=== PATIENT | female | born 2000 | race Caucasian/White ===

== ENCOUNTER 2023-02-10 10:54 | Inpatient (IN) | payer MEDICAID, SELFPAY ==
[2023-02-10] VITALS (58 sets, daily range): BP systolic 110–232; BP diastolic 56–119; PULSE 68–151; TEMP 36.4–37.8; O2SAT 86–100; BMI 34.6
[2023-02-10] MEDS: Lactated Ringers 1,000 ML 50 ML IV (11:50)
[2023-02-10] MEDS: Oxytocin 15 Units/NS 250ml 15 UNITS/250 ML IV.SOLN 2 UNITS IV (11:55)
[2023-02-10 12:19] LABS: Absolute Neutrophil Count 12.1 X10^3/uL (2.0-7.7); Basophil# 0.06 X10^3/uL; Basophil% 0.4 % (0-1); Eosinophil# 0.32 X10^3/uL; Eosinophils% 2.1 % (0-5); Hematocrit 36.4 % (37-47); Hemoglobin 12.2 g/dL (12.0-15.0); Mean Corp Hgb Conc 33.5 g/dL (32-36); Mean Corpuscular Hgb 28.4 pg (27.0-32.0); Mean Corpuscular Volume 84.7 fL (81-99); Monocyte# 0.78 X10^3/uL; Monocyte% 5.1 % (0-10); NRBC Flagged by Analyzer 0 % (0-5); Neutrophil # 12.12 X10^3/uL (2.7-7.7); Neutrophil % 78.9 % (47-70); Platelet Count 320 K/mm3 (150-450); RBC Distribution Width CV 13.2 % (11.6-14.6); RBC Distribution Width SD 40.6 fl (35.1-43.9); White Blood Count 15.4 K/mm3 (4.4-11.0)
[2023-02-10] MEDS: LACTATED RINGERS 500 ML 999 ML IV (12:19)
[2023-02-10 12:50] LABS: Syphilis Antibodies Non-reactive
[2023-02-10] MEDS: Penicillin G Pot 5,000,000 UNITS in 0.9% Normal Saline (100mL MB+) 100 ML 150 UNITS IV (12:53)
[2023-02-10] MEDS: fentaNYL-bupivacaine (epidural) 100 ML BAG EPIDURAL ×2 (13:26→18:05)
--- NOTE | 2023-02-10 13:38 | PCM.HP.OB ---
HPI - General General Date of Admission: 02/10/23 Date of Service: 02/10/23 HPI Narrative VIC HOLLAND, is a 22 F who presents with ctxs. Maternal Data Information Final JIMY: 02/09/23 Gestational age: 40&1 PFSH PFSH Medical History Anemia Anxiety Family history of congenital heart defect Home Medications vit no.95-ferrous fumarate 28 mg-folic acid 800 mcg tablet () 1 tab PO DAILY 02/10/23 [History Last Taken 02/09/23 13:30 1 TAB] Allergy/AdvReac Type Severity Reaction Status Date / Time No Known Allergies Allergy Verified 02/10/23 11:48 Social History Smoking Status: Former smoker History Elective abortions Hx Para 0 Spontaneous abortions Hx # Term Pregnancies Ectopic pregnancies Hx # Pregnancies Multiple births # of living children NST FHR Rate Baby A Baseline: 135 Variability:: Moderate Accelerations:: 15 x 15 Decelerations:: Variable Uterine Activity:: Irregular Vital Signs Vital Signs Vital Signs: 02/10/23 09:43 02/10/23 09:43 02/10/23 09:43 Temperature Temperature Source Temporal Pulse Rate 89 Blood Pressure 135/89 H BP Systolic 135 BP Diastolic 89 Pulse Ox 02/10/23 09:43 02/10/23 10:51 02/10/23 10:51 Temperature 98.5 F Temperature Source Pulse Rate 83 Blood Pressure 141/96 H BP Systolic 141 BP Diastolic 96 Pulse Ox 02/10/23 10:53 02/10/23 10:53 02/10/23 10:52 Temperature Temperature Source Pulse Rate 85 Blood Pressure 139/86 H BP Systolic 139 BP Diastolic 86 Pulse Ox 100 02/10/23 10:51 02/10/23 10:51 02/10/23 10:51 Temperature Temperature Source Temporal Pulse Rate 83 Blood Pressure BP Systolic BP Diastolic Pulse Ox 99 02/10/23 10:51 02/10/23 11:40 02/10/23 11:40 Temperature 98.2 F 98.4 F Temperature Source Tympanic Pulse Rate Blood Pressure BP Systolic BP Diastolic Pulse Ox 02/10/23 11:56 02/10/23 11:56 02/10/23 13:11 Temperature Temperature Source Pulse Rate 91 Blood Pressure 125/84 H 145/91 H BP Systolic 125 145 BP Diastolic 84 91 Pulse Ox 02/10/23 13:11 02/10/23 13:11 02/10/23 13:16 Temperature Temperature Source Pulse Rate 106 H Blood Pressure 143/88 H BP Systolic 143 BP Diastolic 88 Pulse Ox 100 02/10/23 13:16 02/10/23 13:16 02/10/23 13:16 Temperature Temperature Source Pulse Rate 102 H 102 H Blood Pressure BP Systolic BP Diastolic Pulse Ox 99 02/10/23 13:21 02/10/23 13:21 02/10/23 13:21 Temperature Temperature Source Pulse Rate 117 H Blood Pressure 138/81 H BP Systolic 138 BP Diastolic 81 Pulse Ox 99 02/10/23 13:27 02/10/23 13:27 02/10/23 13:26 Temperature Temperature Source Pulse Rate 151 H Blood Pressure 130/56 H BP Systolic 130 BP Diastolic 56 Pulse Ox 96 02/10/23 13:30 02/10/23 13:30 02/10/23 13:31 Temperature Temperature Source Pulse Rate 107 H 120 H Blood Pressure 134/64 H BP Systolic 134 BP Diastolic 64 Pulse Ox 02/10/23 13:31 02/10/23 13:33 02/10/23 13:33 Temperature Temperature Source Pulse Rate 118 H Blood Pressure 142/73 H BP Systolic 142 BP Diastolic 73 Pulse Ox 99 02/10/23 13:36 02/10/23 13:36 Temperature Temperature Source Pulse Rate 110 H Blood Pressure 136/72 H BP Systolic 136 BP Diastolic 72 Pulse Ox Weight Weight: 189 lb 2.506 oz Body Mass Index (BMI) 34.6 Physical Exam Const alert, oriented x3 and no apparent distress external exam normal Narrative: cvx - 3/90/-1, AROM mec fluid Labs Labs Labs: Blood Type A POSITIVE Antibody Screen NEGATIVE Hct 36.4 % (37-47) L Hgb 12.2 g/dL (12.0-15.0) Syphilis Total Ab Non-reactive Assessment & Plan (1) Post-dates : QUALIFIERS: Post-term type: 40-42 weeks gestation Qualified Code(s): O48.0 - Post-term COMMENT: @ 40&1 PLAN: Plan Admit to L&D AUgment with pitcon AROM mod meconium fluid Pain - epidural GBS positive - pcn per protocol EFW - less than 4500g, patient with adequate pelvis Routine care
[2023-02-10] MEDS: Lactated Ringers 1,000 ML 200 ML IV (16:58)
[2023-02-10] MEDS: Penicillin G 3,000,000 Units 50 ML 100 UNITS IV ×2 (16:58→20:55)
[2023-02-10] MEDS: Oxytocin 15 Units/NS 250ml 15 UNITS/250 ML IV.SOLN 83 UNITS IV (22:23)
--- NOTE | 2023-02-10 23:23 | EX.PCM.OBRPT ---
Maternal Data Information Final JIMY: 02/09/23 Gestational age: 40&1 Vaginal Delivery Maternal Presentation Maternal Presentation: Active Labor Operative Information Date of Procedure: 02/10/23 Pre-Operative Diagnosis: Labor Post-Operative Diagnosis: Same Surgery / Procedure Performed: Spontaneous Vaginal Delivery Type of Anesthesia: Epidural Estimated Blood Loss: 300ml Findings Description of Procedure: Patient prepped & draped when C/C/+2. She pushed well to deliver the head. head gently guided to allow delivery of anterior and posterior shoulders. No excess traction placed on head. Body delivered and 3VC clamped & cut in delayed fashion. Placenta delivered with gentle traction and good uterine tone obtained. Presentation: IRENA Amniotic Membrane Rupture Type: Artificial Amniotic Fluid Description: Moderate meconium Placental Delivery Description: Expressed Placenta Disposition: [facility] Specimen(s) Removed: Placenta Cord Vessel Description: 3 Vessels Cord Entanglement: None A Gender: Male (1 minute): 8 (5 minute): 9 Delayed Cord Clamping: Yes Post Vaginal Delivery Medications Given After Delivery: IV Pitocin Episiotomy Description: None Laceration: 1st degree (right vaginal - repaired with 3-0 vicryl) Complication Complications: None
[2023-02-11] VITALS (8 sets, daily range): BP systolic 99–137; BP diastolic 51–71; PULSE 87–105; RESP 16–18; TEMP 36.8–37; O2SAT 98–99
--- NOTE | 2023-02-11 08:32 | PCM.PROGNOTE ---
Subjective Subjective patient seen at bedside, doing well. Patient reports good pain control. lochia mild. Objective Data Objective Data Vital Signs: Vital Signs Temp Pulse Resp BP Pulse Ox O2 Del Method 98.6 F 102 H 18 99/61 99 Room Air 02/11/23 08:02 02/11/23 08:02 02/11/23 08:02 02/11/23 08:02 02/11/23 00:05 02/11/23 03:05 Oxygen Delivery Method Room Air Weight: 85.8 kg Body Mass Index (BMI) 34.6 Intake & Output: Intake and Output for Last 24 Hours 02/09/23 02/10/23 02/11/23 23:59 23:59 23:59 Intake Total 3252.50 / 3252.50 250 / 250 Output Total 900 / 900 1600 / 1600 Balance 2352.50 / 2352.50 -1350 / -1350 Lab / Micro Data 02/10/23 11:50 Labs: Laboratory Results - last 24 hr 02/10/23 11:50: WBC 15.4 H, RBC 4.30, Hgb 12.2, Hct 36.4 L, MCV 84.7, MCH 28.4, MCHC 33.5, RDW Std Deviation 40.6, RDW Coeff of Cheryl 13.2, Plt Count 320, MPV 10.0, Immature Gran % (Auto) 0.500, Neut % (Auto) 78.9 H, Lymph % (Auto) 13.0 L, Pocahontas % (Auto) 5.1, Eos % (Auto) 2.1, Baso % (Auto) 0.4, Absolute Neuts (auto) 12.1 H, Absolute Lymphs (auto) 2.00, Nucleated RBC % 0, Syphilis Total Ab Non-reactive, Blood Type A POSITIVE, Antibody Screen NEGATIVE Physical Exam Const alert and oriented x3 General Appearance: cooperative HEENT normocephalic Neck General: normal visual inspection GI soft to palpation and non-distended GI Narrative: Fundus firm Extremity normal to inspection and no calf tenderness Skin no rashes or lesions noted Neuro oriented x3 and CN's II-XII intact bilaterally Psych mental status grossly normal Assessment & Plan Assessment/Plan (1) Vaginal delivery: PLAN: Plan PPD#1 , Doing well Routine care pain mgmt ambulation
--- NOTE | 2023-02-11 11:54 | DCINST_ITS ---
Discharge Instructions Diet Discharge Diet: No restrictions Activity May resume sexual activity in: 6-8 weeks Dressing / Incision Call your doctor if you observe: Fever of 101 or Higher, Inability to urinate, Using more than 1 pad per hour and Uncontrolled pain Follow Up Care Please Follow Up With: Kimberly Weller MD When: 1-2 weeks post and again at 6 weeks post . [phone] Test Results: Test results from this visit will be discussed in further detail at your follow- up appointment, if applicable. Discharge Plan Admission Admit Date/Time: 02/10/23 10:54 Attending Provider: Carin Rivers Primary Care Provider: Douglas Moya Discharge Orders/Prescriptions Prescriptions: No Action PNV cmb#95-ferrous fumarate-FA [] 28 mg iron- 800 mcg tablet 1 tab PO DAILY Referrals / Follow Up: Douglas Moya DO [Primary Care Provider] -
--- NOTE | 2023-02-11 15:06 | CASEMGMT ---
Labor and Delivery Social Work Social work consult received due to maternal mental health history positive for anxiety and need for resources. Joelle presented to bedside and met with mother of baby (MOB- Viji) and father of baby (FOB- Jose). Sw explained reason for social work involvement, completed psychosocial assessment, assessed for needs/ concerns and discussed beneficial resources for MOB and baby. - MOB expressed desire to breast feed and pump breast milk for baby, however struggled to get baby latched, sw reached out to for support. - Sw informed MOB that it is ok if she is only able to breast feed/ provide breast milk for baby temporarially as it can be painful, challenging and extremely time consuming. Sw commended MOB for her desire to do so for baby. Sw encouraged MOB to get connected to [place] which would provide assistance for obtaining formula should MOB need to supplement. MOB stated that she is already connected to WIC. - Sw informed MOB that she needs to get baby added to insurance within 30 days. Sw provided MOB with list of community resources, and highlighted JFS phone number and wrote down that MOB needs to call as soon as she has baby's social security card. Sw also encouraged MOB to apply for food benefits when she gets baby added to insurance. MOB expressed understanding. - There is a definite language barrier between product manager medical device and FOB. MOB did translating for sw and FOB, however she did not speak Omani, she just reworded the question to simpler terms. - Sw asked MOB who her supports are. MOB stated that paternal aunt helps her and FOB a lot with transportation and with things at home. MOB stated it is FOB's aunt that will help her with getting connected to community resources. MOB also stated that her mom is a support person for her as well. - Joelle educated MOB on [facility] and the benefits of getting connected to them. MOB was receptive to referral. Sw informed MOB that [facility] will call or text her to get an appointment scheduled and sw told MOB that she needs to answer her phone when they call. MOB expressed understanding. - Sw also encouraged MOB to make appointment with outpatient services. MOB receptive to this recommendation as well. Sw will make referral to [facility]. More detailed psychosocial assessment note to follow. Per social work- it is ok for MOB and baby to be discharged (as long as willing to engage with community resources) when medically ready. At this time, MOB states that she is receptive to recommendations made by social work and medical team. Deyanira Cordoba, PROSTHETIC ASSISTANT, SERVICE LOSS CONTROL CONSULTANT
--- NOTE | 2023-02-11 16:30 | CASEMGMT ---
Social Work Assessment Labor and Delivery Unit Patient Address: [address] [address] Phone number: [phone] Date of Referral: 02/11/23 Time of Referral:? 5 Referred By: Carin Rivers Date of Intervention: ??02/11/23 Time of Intervention:? 1320, onoging Reason for Referral:? hx of anxiety, resources Sw completed chart review and acknowledges social work consult due to maternal mental health history positive for anxiety. This is also first baby for mother and father of baby who would benefit from information regarding resources that they are eligible for at this time. Sw presented to bedside and introduced self to mother of baby (MOB- Viji) and father of baby (FOB- Jose). Sw completed psychosocial assessment and discussed applicable resources that parents and baby are eligible for at this time. History obtained from: medical records, MOB and FOB- however FOB's Niuean is very limited, sw repeated self several times in order to obtain necessary information. MOB would ask FOB same question as SW did but would rephrase it for FOB to understand. Household composition: DEVEN reports that currently it is only herself, FOB and now baby that live together. DEVEN denies any concerns with housing, reports is safe and secure at this time. Patient's parent/guardian status:? DEVEN states that she and FOCandelario have been together for 2 years, they were introduced to each other by FOB's aunt. DEVEN denies any concerns of domestic violence or intimate partner violence. ? Medical History: ?DEVEN is 22 year old, female who is 1, para 0- now 1 following labor and delivery of baby. DEVEN received routine care with [facility] during . DEVEN delivered baby boy on 02/10/23 via vaginal delivery at 40 weeks gestation. Baby boy, named Ted was born weighing 6lb 11oz and his apgars were 9 and 9 at one and five minutes of life respectfully. DEVEN states that baby will be followed by Dr. Sanders for pediatrics. - While completing assessment with parents, FOB was observed to be holding baby while he was sitting in the reclining chair. After a while baby started to cry and FOB bounced baby gently in attempt to calm him. Sw asked MOB and FOB when baby ate last, and MOB stated that baby ate last at 1030. The time now was 1320. Joelle informed MOB that if she is working on breast feeding it would be time for baby to eat, explaining that a breastfed baby can eat anytime they show hunger cues. Which at that time baby had been putting his hand to his mouth- and sw explained that this is a hunger cue. Joelle asked MOB if she would like to come and meet with her for some education/ assistance and MOB said yes. Joelle called and asked for them to come and meet with mom. - Later on in day, sw was informed by bedside RN that she and had been providing lots of education with MOB today, and they have concerns that she was not comprehending how to feed baby. Nurse stated that MOB is expressing a desire to breast feed, and initially baby latches really well, and then unlatches and mom struggles to get him latched again. Sw stated that while meeting with MOB she was receptive to following up with outpatient support services, WIC and [facility]. Sw stated that all these supports will provide breast feeding and bottle feeding assistance to MOB. Joelle stated that MOB also informed sw that her mom and FOB aunt are their identified support people who will also be available to help parents once discharged from hospital. Educational Status:? MOB states that she graduated from high school and did require an IEP for reading. Joelle asked MOB if she is able to read, and MOB said that she is, but her IEP would offer her more time to complete tests, and she was assigned seats in the front of the class. Joelle asked about DONNIE, and DEVEN stated that he completed his schooling in [place]. 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 MOB states that she was working for an independent [employer] company and she is on maternity leave at this time. Infant Supplies:?? MOB states that she and DONNIE have obtained all necessary baby items for baby, including: car seat, safe sleep space, clothes, diapers, wipes, feeding supplies, etc. Childcare/Caregiver(s):?When both parents are working and they need assistance with childcare either maternal grandma will babysit the baby, or paternal aunt. Transportation:?? MOB reports that she does not drive, but DONNIE does and has reliable transportation. Sw asked MOB how she gets to scheduled doctors appointments, and she reported that either her mom or paternal aunt will help with transportation, MOB stated that she does not miss scheduled appointments. - Sw educated MOB on the importance of ensuring that baby gets to all of his scheduled [employer] Up [employer]er appointments when they are scheduled. MOB expressed understanding. Programs/Agencies Involved: ?MOB stated that at this time she is connected to insurance through [employer] (medicaid), WIC and is receptive to getting connected to [facility]. Sw explained benefits of program and encouraged MOB to utilize them. MOB expressed understanding. Sw also educated MOB on outpatient services that are available to her, MOB stated that she is receptive to following up with them as well. ?? Children Services/Legal Issues:??No history of children services involvement. At this time MOB is receptive to following up with all recommended resources and services that are available to her. While completing psychosocial assessment parents were appropriately engaged in care of . If any additional concerns should arise a referral to Children Services may be warranted. ? Behavioral Health Issues: ??Mental Health History:?DEVEN states that DONNIE does not have any mental health diagnoses. MOB stated that she has been diagnosed with anxiety, is not prescribed medications and is not connected to any mental health resources. ?? Substance Use History: MOB denies ever using illicit substances prior to and during . ?? Family History:?MOB denies substance use history in her family and FOB family. MOB also denies significant mental health diagnoses. ???Drug Screens: ?No urine screens observed in chart review. ? Family/Social Stressors:?MOB denies any stressors or concerns at this time. Support Systems: MOB states that her mom and paternal aunt are her and FOB's biggest supports. Depression/Shaken Baby/Safe Sleeping:? Sw educated MOB and FOB on signs and symptoms of baby blues and depression. Sw explained to MOB that she is more at risk of experiencing baby blues or depression/ anxiety due to her history of anxiety. MOB expressed understanding. Sw educated parents on shaken baby prevention and importance of ABCs of safe sleep. MOB and FOB expressed understanding. ASSESSMENT: MOB is 22 year old first time mom to . MOB and baby admitted following labor and delivery. MOB struggling with breast feeding and was utilizing support and education provided by . MOB made good eye contact with sw. FOB struggled to understand questions asked by social work, but would comprehend better when talking with MOB. MOB was receptive to getting connected to [facility], WIC, JFS (insurance and food stamps) and outpatient supports. MOB was informed of additional community resources that are available to her should she have any needs once discharged from labor and delivery. MOB answered questions asked by sw, but did not always elaborate on answers. Sw could tell that MOB was struggling with breast feeding, often seeming confused on how to get baby to latch again after he had unlatched. Sw provided support and reiterated questions and concerns to be forwarded to . ? PLAN:? Sw will make referral to [facility] as MOB is receptive to this linkage. Sw touched base with bedside RN and discussed nursing concerns at this time. Sw stated that while sw was meeting with them parents were engaged appropriately in care, however it was evident that MOB was struggling with feeding baby. Sw stated that at this time sw is ok with MOB and baby being discharged as long as MOB continues to be receptive to follow up with appropriate and beneficial community resources. Deyanira Cordoba, SONAR TECHNICIAN, CARDIOLOGY CLINICAL NURSE SPECIALIST
[2023-02-11] MEDS: Ibuprofen 100 MG/5 ML UDC 600 MG PO (21:13)
[2023-02-12 02:01] VITALS: BP 130/64; PULSE 89; RESP 16; TEMP 36.6
[2023-02-12 08:18] VITALS: BP 112/66; PULSE 83; RESP 16; TEMP 36.7; O2SAT 98
--- NOTE | 2023-02-12 08:21 | PCM.PROGNOTE ---
Subjective Subjective patient seen at bedside, doing well. Patient reports good pain control. lochia mild. Objective Data Objective Data Vital Signs: Vital Signs Temp Pulse Resp BP Pulse Ox O2 Del Method 97.9 F 89 16 130/64 H 99 Room Air 02/12/23 02:01 02/12/23 02:01 02/12/23 02:01 02/12/23 02:01 02/11/23 00:05 02/12/23 02:01 Oxygen Delivery Method Room Air Weight: 85.8 kg Body Mass Index (BMI) 34.6 Intake & Output: Intake and Output for Last 24 Hours 02/10/23 02/11/23 02/12/23 23:59 23:59 23:59 Intake Total 3252.50 / 3252.50 250 / 250 Output Total 900 / 900 1600 / 1600 Balance 2352.50 / 2352.50 -1350 / -1350 Lab / Micro Data 02/10/23 11:50 Physical Exam Narrative fundus firm. Const alert and oriented x3 General Appearance: cooperative HEENT normocephalic Neck General: normal visual inspection GI soft to palpation and non-distended GI Narrative: Fundus firm Extremity normal to inspection and no calf tenderness Skin no rashes or lesions noted Neuro oriented x3 and CN's II-XII intact bilaterally Psych mental status grossly normal Assessment & Plan Assessment/Plan (1) Vaginal delivery: PLAN: Plan PPD# 2 , Doing well Routine care pain mgmt ambulation dc home planned today- however there are concerns about feeding - will see how patient does today time spent on day of discharge face to face with patient was <30min
[2023-02-12 12:15] VITALS: BP 123/57; PULSE 90; RESP 16; TEMP 36.6; O2SAT 98
[2023-02-12] MEDS: Ibuprofen 100 MG/5 ML UDC 600 MG PO (12:30)
[2023-02-12 16:16] VITALS: BP 127/69; PULSE 78; RESP 16; TEMP 36.6; O2SAT 98
[2023-02-12 19:45] VITALS: BP 136/69; PULSE 94; RESP 18; TEMP 36.4; O2SAT 98
--- NOTE | 2023-02-12 20:44 | CASEMGMT ---
Social Work SW consulted by nursing due to concerns. Pt was to discharge today but d/c cancelled due to concerns. Pt had assessment yesterday and planned to d/c home with baby today but patient has been struggling to care for baby. SW introduced self and role to patient. SW gathered some basic information. Pt presents as having possible cognitive delays or mild intellectual disability but there is no related diagnosis in medical record. Pt attempting to nurse baby. Pt became frustrated when baby cried and requested nursing assistance. FOB present and does not speak Swedish. FOB does seem engaged in baby's needs. SW provided support. Major concerns include patient being told the same instructions repeatedly, lack of understanding/retention, difficulty feeding baby by breast or bottle, unsure how to make a bottle even with instruction, frequently calls nursing if baby cries, unsure of baby's needs, and unsure how to change a diaper. Pt does report to SW that she is unsure of caring for baby's needs and is staying another day for education. Pt does report planning to stay at her mother's home for 2 weeks, [facility]. Pt does reside with FOB who presents as able to provide care. Due to concerns, SW contacted CSB to review. CSB rack production workerwallboard worker reviewed with underwriting clerks supervisor and case will be opened on the basis of providing resources and assistance to patient/baby. SW obtained additional info for CSB worker from patient. Pt had family in the room at the time of gathering information and CSB referral was not discussed with her. SW notified CSB of plan to discharge tomorrow. CSB reports either tomorrow or Tuesday someone should be reaching out to provide support. Due to FOB and grandparent assistance, CSB reports baby to d/c home with patient. SW advised CSB to call [facility] if any other concerns arise. Additionally, patient's nurse has been providing additional assistance and education. Pt shown by nurse how to scan education materials for documents to be played on her phone for frequent review. Plan: Patient to d/c home with baby. CSB to provide additional assistance/resources post-discharge. Isabella Frank CENTER MEDICAL SPECIALIST, TELEHEALTH DIRECTOR
[2023-02-13 01:35] VITALS: BP 105/64; PULSE 73; RESP 16; TEMP 36.8; O2SAT 98
[2023-02-13] MEDS: Ibuprofen 100 MG/5 ML UDC 600 MG PO (01:51)
--- NOTE | 2023-02-13 04:13 | PCM.PROGNOTE ---
Subjective Subjective patient seen at bedside, doing well. Patient reports good pain control. lochia mild. pt reports just fed baby a bottle- is writing it down so she remembers. happy with help she got yesterday with bottle cleaning. Objective Data Objective Data Vital Signs: Vital Signs Temp Pulse Resp BP Pulse Ox O2 Del Method 98.2 F 73 16 105/64 98 Room Air 02/13/23 01:35 02/13/23 01:35 02/13/23 01:35 02/13/23 01:35 02/13/23 01:35 02/13/23 01:35 Oxygen Delivery Method Room Air Weight: 85.8 kg Body Mass Index (BMI) 34.6 Intake & Output: Intake and Output for Last 24 Hours 02/11/23 02/12/23 02/13/23 23:59 23:59 23:59 Intake Total 250 / 250 Output Total 1600 / 1600 Balance -1350 / -1350 Lab / Micro Data 02/10/23 11:50 Physical Exam Const alert and oriented x3 General Appearance: cooperative HEENT normocephalic Neck General: normal visual inspection GI soft to palpation and non-distended GI Narrative: Fundus firm Extremity normal to inspection and no calf tenderness Skin no rashes or lesions noted Neuro oriented x3 and CN's II-XII intact bilaterally Psych mental status grossly normal Assessment & Plan Assessment/Plan (1) Vaginal delivery: PLAN: Plan PPD# 2 , Doing well Routine care pain mgmt ambulation continue education on feeding and basic care of - dc home
[2023-02-13 08:00] VITALS: BP 112/64; PULSE 73; RESP 16; TEMP 36.2; O2SAT 98
[2023-02-13 13:06] VITALS: BP 132/79; PULSE 96; RESP 16; TEMP 36.8; O2SAT 99
--- NOTE | 2023-02-14 09:51 | CASEMGMT ---
Social Work Referral made on this date to [facility] as previously discussed and agreed upon with MOB. MOB would benefit from getting connected to [facility] to ensure she is educated on appropriate baby growth, development and nutritional needs. Deyanira Cordoba, COMMERCIAL SOLAR SALES CONSULTANT, CONTENT MANAGEMENT CONSULTANT
--- NOTE | 2023-04-13 19:35 | CM.ED ---
Social Work Letter received from [facility] that assessment and investigation has been closed. Pt will not have ongoing services. Isabella Frank STRAIGHTENER HAND, AGRICULTURAL ENGINEERING TEACHER
== END 2023-02-13 13:30 | disposition home or self-care (01) | DRG 560 ==
LOC: WPOUT 11:17 → WP 11:17
PROVIDERS: Admitting Provider Obstetrics & Gynecology; PCP Pediatrics; Referring Provider Obstetrics & Gynecology; Visit Provider Obstetrics & Gynecology
DX: O76 Abnormality in fetal heart rate and rhythm complicating labor and delivery (principal); Z37.0 Single live birth; O70.0 First degree perineal laceration during delivery; O99.824 Streptococcus B carrier state complicating childbirth; O77.0 Labor and delivery complicated by meconium in amniotic fluid; Z3A.40 40 weeks gestation of pregnancy; Z60.3 Acculturation difficulty; Z87.891 Personal history of nicotine dependence
CPT/HCPCS: 59025; 59050; 85025; 86780; 86850; 86900; 86901; 99221; J7120; G0378